=== PATIENT | female | born 1980 | race American Indian/Alaskan Native ===

== ENCOUNTER 2016-10-26 22:07 | Emergency (ER) | payer SELFPAY ==
[2016-10-26 22:19] VITALS: BP 148/68
--- NOTE | 2016-10-27 14:08 | ED Elopement Review ---
ED Pt Elopement review - Results review Lab results: Laboratory Tests 10/26/16 10/26/16 22:13 23:01 POC Glucose 220 H 106 H - Call Back decision Pt Call Back Decision: Pt to F/U with PMD
== END 2016-10-27 01:15 | disposition left against medical advice (07) ==
LOC: ED 22:07
DX: T38.3X1A Poisoning by insulin and oral hypoglycemic [antidiabetic] drugs, accidental (unintentional), initial encounter (principal); Y92.89 Other specified places as the place of occurrence of the external cause; Z53.21 Procedure and treatment not carried out due to patient leaving prior to being seen by health care provider
CPT/HCPCS: 82962

== ENCOUNTER 2017-09-16 01:45 | Emergency (ER) | payer SELFPAY | END 2017-09-16 03:45 | disposition left against medical advice (07) | LOC: ED 01:45 | DX: R73.9 Hyperglycemia, unspecified (principal); Z53.21 Procedure and treatment not carried out due to patient leaving prior to being seen by health care provider | CPT/HCPCS: 82962 ==